=== PATIENT | male | born 1985 | race Caucasian/White ===

== ENCOUNTER → 2017-11-04 | Outpatient (REF) ==
[~2017-11-04] MED LIST: CEPH-13 PO; NO ROUTINE MEDS; PRO25 PO
--- NOTE | 2017-11-04 10:08 | RADIOLOGY IMAGING REPORT ---
FACILITY: [facility] [place] PATIENT NAME: Zhen Alejo : 1985 MR: [id number] V: [id number] EXAM DATE: ORDERING PHYSICIAN: CHANDNI CAMPOVERDE TECHNOLOGIST: Location: [facility] Patient: Zhen Alejo : 1985 Visit/Account:[id number] Date of Sevice: 11/04/2017 Technique: CHEST SINGLE AP HISTORY: Physical, work assessment COMPARISON: Chest radiograph February 14, 2014 Findings: The lungs are clear. No pleural effusion or pneumothorax. The cardiomediastinal silhouett e is unremarkable. Impression: 1. No acute cardiopulmonary process. Report Dictated By: Jewel Kitchen DO at 11/04/2017 9:57 AM Report E-Signed By: Jewel Kitchen DO at 11/04/2017 10:01 AM WSN:[id number]
== END ==
LOC: RAD 09:32
PROVIDERS: ATTEND Physician Assistant Medical
DX: Z02.79 Encounter for issue of other medical certificate (principal)
CPT/HCPCS: 71045